=== PATIENT | female | born 1985 | race Caucasian/White ===

== ENCOUNTER → 2021-07-01 | Outpatient (CLI) | payer OTHER ==
[~2021-07-01] MED LIST: DOCUSATE SODIU100 MG PO; HYDROCODON-ACE1 EAC4 PO; IBUPROFEN600 MG PO; PRENATABS FA T1 EACH PO
== END ==
LOC: EROP 13:13
DX: Z01.812 Encounter for preprocedural laboratory examination (principal); Z20.822 Contact with and (suspected) exposure to COVID-19
CPT/HCPCS: U0003

== ENCOUNTER 2021-07-04 05:35 | Inpatient (IN) | payer OTHER ==
[~2021-07-04] VITALS: Ht 162.6 cm; Wt 81.2 kg
[2021-07-04] MEDS ORDERED: PRENATABS FA T1 EACH PO (06:17)
[2021-07-04 07:20] LABS: RED BLOOD COUNT 4.22 M/UL (4.00-5.10); WHITE BLOOD COUNT 10.6 K/UL (4.5-11.0)
[2021-07-04] MEDS ORDERED: DOCUSATE SODIU100 MG PO (08:03)
[2021-07-04] MEDS ORDERED: IBUPROFEN600 MG PO (08:03)
[2021-07-04] MEDS ORDERED: HYDROCODON-ACE1 EAC4 PO (08:03)
[2021-07-05 06:21] LABS: HEMOGLOBIN 11.5 gm/dl (12.3-15.3)
== END 2021-07-06 12:06 | disposition home or self-care (01) | DRG 788 ==
LOC: GENOP 05:35 → OB 06:04
PROVIDERS: ADMIT Obstetrics & Gynecology
PROC: 4A1HXCZ Monitoring of Products of Conception, Cardiac Rate, External Approach (ICD-10-PCS; 2021-07-04)
PROC: 3E0234Z Introduction of Serum, Toxoid and Vaccine into Muscle, Percutaneous Approach (ICD-10-PCS; 2021-07-04)
PROC: 10D00Z1 Extraction of Products of Conception, Low, Open Approach (ICD-10-PCS; principal; 2021-07-04 07:58)
DX: O34.211 Maternal care for low transverse scar from previous cesarean delivery (principal); Z3A.39 39 weeks gestation of pregnancy; Z37.0 Single live birth; O69.81X0 Labor and delivery complicated by cord around neck, without compression, not applicable or unspecified; Z20.822 Contact with and (suspected) exposure to COVID-19; O62.2 Other uterine inertia; Z87.891 Personal history of nicotine dependence; Z23 Encounter for immunization
CPT/HCPCS: 36415; 81001; 85014; 85018; 85025; 90715; C9113; J0690; J1170; J2210; J2250; J2274; J2370; J2405; J3010; J7120